=== PATIENT | female | born 1940 | race Caucasian/White ===

== ENCOUNTER 2018-12-26 19:25 | Inpatient (IN) ==
[2018-12-26] MEDS ORDERED: Ondansetron 4 MG/2 ML VIAL IVP ONE (19:38)
[2018-12-26] MEDS ORDERED: 0.9 % Sodium Chloride 1,000 ML IVC ONE ×2 (19:38→19:47)
--- NOTE | 2018-12-26 19:43 | Emergency Department Note ---
Disposition Clinical Impression: Hyponatremia, Lactic acidosis Abdominal pain Qualifiers: Abdominal location: generalized Qualified Code(s): R10.84 - Generalized abdomi nal pain Nausea and vomiting Qualifiers: Vomiting type: unspecified Vomiting Intractability: non-intractable Qualified Code(s): R11.2 - Nausea with vomiting, unspecified Diarrhea Qualifiers: Diarrhea type: unspecified type Qualified Code(s): R19.7 - Diarrhea, unspecified Hypertension Qualifiers: Hypertension type: unspecified Qualified Code(s): I10 - Essential (primary) hypertension Disposition: Still a Patient Condition: Undetermined Referrals: Deepthi Lopez CNP [Primary Care Provider] - Forms: ED Satisfaction Letter Time of Disposition: 20:49 General Adult HPI - General Chief complaint: ED Nausea/Vomiting/Diarrhea Stated complaint: Abd Pain NV Time Seen by Provider: 12/26/18 19:35 Source: patient Mode of arrival: private vehicle Limitations: no limitations Nursing Notes Reviewed: Yes Vital Signs Reviewed: Yes - History of Present Illness HPI Narrative: Patient is a 78-year-old female with past medical history including hypertension, diabetes mellitus, presenting with chief complaint of abdominal pain, nausea or vomiting, diarrhea since yesterday. The patient complains of generalized abdominal cramping since yesterday. She states since yesterday evening, she has had about 10 episodes of nonbilious nonbloody emesis. She states she had 3 episodes of nonbloody diarrhea today. She is not being able to keep down any food or water. She states she feels very dehydrated. She has also been under increased stress as of lately. She denies headaches, changes in vision, extremity weakness or numbness, chest pain, shortness of breath. The patient has had a history of a cholecystectomy many years ago. She denies any recent antibiotic use, no recent travel, no sick contacts. Pain Scale: 8 - Related Data Home Medications Medication Instructions Recorded Confirmed Lisinopril [Zestril] 20 mg PO BID 12/26/18 12/26/18 [place]-3 Fatty Acids [Fish Oil] 1,200 mg PO DAILY 12/26/18 12/26/18 Simvastatin [Zocor] 20 mg PO HS 12/26/18 12/26/18 hydrOXYzine pamoate [Hydroxyzine 12.5 mg PO PRN PRN 12/26/18 12/26/18 Pamoate] Allergies Allergy/AdvReac Type Severity Reaction Status Date / Time Penicillins Allergy Hives Verified 12/26/18 19:46 All systems ED: reviewed and negative except as stated. Review of Systems: As Per HPI Constitutional: Denies: fever, chills Eyes: Denies: vision change Cardiovascular: Denies: chest pain, palpitations Respiratory: Denies: cough, dyspnea Gastrointestinal: Reports: abdominal pain, nausea, vomiting, diarrhea. Denies: hematemesis, hematochezia Genitourinary: Denies: dysuria Neurological: Denies: headache, weakness, numbness Past Medical History - Past Medical History Attestation: Yes The following information was validated with the patient. Source: patient Medical history: Reports: diabetes, hyperlipidemia, hypertension Surgical history: Reports: cholecystectomy Psychiatric history: Reports: depression - Social History Smoking Status: Never smoker Alcohol use: Reports: none Physical Exam - General Limitations: no limitations General appearance: alert - Head Head exam: atraumatic, normocephalic - Eye Eye exam: Present: normal appearance, PERRL, EOMI. Absent: nystagmus - ENT ENT exam: mucous membranes dry - Neck Neck exam: Present: normal inspection, trachea midline - Chest Chest inspection: Present: normal inspection, symmetric chest wall rise - Respiratory Respiratory exam: Present: normal lung sounds bilaterally. Absent: respiratory distress, wheezes - Cardiovascular Cardiovascular exam: Present: regular rate, normal rhythm, other (Bilateral radial pulses are equal and palpable) - Abdominal Exam Abdominal exam: Present: soft, other (Generalized abdominal tenderness to palpation without distention, rebound or guarding). Absent: pulsatile mass - Extremities Exam Extremities exam: Present: normal capillary refill. Absent: pedal edema, calf tenderness - Neurological Exam Neurological exam: Present: alert, oriented X3, CN II-XII intact. Absent: motor sensory deficit - Expanded Neurological Exam Speech: Present: fluid speech Cerebellar function: finger to nose: Normal Motor strength - LUE: 5/5 Motor strength - RUE: 5/5 Motor strength - LLE: 5/5 Motor strength - RLE: 5/5 Upper motor neuron exam: mono neglect: Absent bilaterally, pronator drift: Absent bilaterally Sensory exam upper extremity: light touch: Normal Sensory exam lower extremity: light touch: Normal - Psychiatric Psychiatric exam: Present: normal affect, normal mood - Skin Skin exam: Present: warm, dry. Absent: pallor Course Vital Signs Temperature 97.7 F 12/26/18 19:27 Pulse Rate 90 12/26/18 19:27 Respiratory Rate 18 12/26/18 19:27 Blood Pressure 201/81 12/26/18 19:27 O2 Sat by Pulse Oximetry 97 12/26/18 19:27 Temperature 97.7 F 12/26/18 19:27 Pulse Rate 94 12/26/18 20:10 Respiratory Rate 14 12/26/18 20:10 Blood Pressure 211/83 12/26/18 20:10 O2 Sat by Pulse Oximetry 98 12/26/18 20:10 Oxygen Delivery Oxygen Delivery Room Air Medical Decision Making - MDM Narrative Medical decision making narrative: Patient appears significantly dehydrated. She has global weakness and slow movements but a non focal neurologic examination. She is generalized abdominal tenderness without peritoneal signs. Her blood pressure is significantly elevated. We will reassess after giving her antiemetics and IV fluids. Will give her IVFs. Check CBC, BMP, hepatic panel, lipase, troponin, Ekg, ct abd pelvis. 20:25 Labs reviewed. She has hyponatremia and protein in her urine. Will give hydralazine for her hypertension. Patient currently in CT scan 20:45 The patient will be signed out to Dr. Bello and Dr. Hale pending CT imaging results and troponin. She has lactic acidosis. She will be admitted for dehydration and pending CT results. - Medical Records Medical records reviewed: Yes I reviewed the patient's medical records. - Lab Data Lab results reviewed: Yes I reviewed the patient's lab results. Result diagrams: 12/26/18 19:43 12/26/18 19:43 Lab Results 12/26/18 12/26/18 12/26/18 Range/Units 19:43 19:43 19:43 WBC 17.6 H (4.3-11.1) K/mcL RBC 4.88 (3.82-4.97) M/mcL Hgb 14.1 (11.5-15.4) g/dL Hct 41.5 (35.3-44.9) % MCV 85.0 (83.0-100.0) fL MCH 28.9 (28.0-33.3) pg MCHC 34.0 (31.6-35.5) g/dL RDW 11.9 (11.5-14.5) % Plt Count 218 (140-400) K/mcL MPV 10.2 (9.4-12.4) fL Immature Gran % 0.4 (0-4) % Seg Neutrophils % 86.5 % Lymphocytes % 8.3 % Monocytes % 4.4 % Eosinophils % 0.1 % Basophils % 0.3 % Neutrophils # 15.3 H (1.6-8.9) K/mcL Lymphocytes # 1.5 (0.6-4.6) K/mcL Monocytes # 0.8 (0.0-1.3) K/mcL Eosinophils # 0.0 (0.0-0.6) K/mcL Basophils # 0.1 (0.0-0.2) K/mcL Sodium 127 L (136-145) mEq/L Potassium 3.5 (3.5-5.1) mEq/L Chloride 91 L (98-107) mEq/L Carbon Dioxide 22 L (23-29) mEq/L BUN 11 (8-23) mg/dL Creatinine 0.52 L (0.60-1.20) mg/dL Est GFR ( Amer) > 60 (> 60) Est GFR (Non-Af Amer) > 60 (> 60) BUN/Creatinine Ratio 21 (6-26) Glucose 173 H (70-105) mg/dL Calculated Osmolality 268 L (280-300) Lactic Acid 2.5 H (0.5-2.2) mmol/L Calcium 9.9 (8.6-10.3) mg/dL Total Bilirubin 0.9 (0.3-1.0) mg/dL Direct Bilirubin 0.2 (0.0-0.2) mg/dL Indirect Bilirubin 0.7 (0.0-1.2) mg/dL AST 14 (13-39) Units/L ALT 11 (7-52) Units/L Alkaline Phosphatase 62 (34-104) Units/L Serum Total Protein 8.2 (6.4-8.9) g/dL Albumin 4.7 (3.5-5.7) g/dL Globulin 3.5 (2.4-3.5) g/dL Albumin/Globulin Ratio 1.3 (1.1-2.2) Lipase 13 (11-82) Units/L Urine Color (Yellow) Urine Clarity (Clear) Urine pH (5.0-8.0) pH Units Ur Specific [place] (1.010-1.025) Urine Protein (Neg-Trace) mg/dL Urine Glucose (UA) (Normal) mg/dL Urine Ketones (Negative) mg/dL Urine Blood (Negative) Urine Nitrite (Negative) Urine Bilirubin (Negative) Urine Urobilinogen (Normal) mg/dL Ur Leukocyte Esterase (Negative) Urine Microscopic RBC (0-3) per hpf Urine Microscopic WBC (0-3) per hpf Ur Squamous Epith Cells (None-Few) per lpf Urine Bacteria (None-Few) per hpf Hyaline Casts (None-Few) per lpf Ur Culture Indicated? (NO) 12/26/18 Range/Units 20:10 WBC (4.3-11.1) K/mcL RBC (3.82-4.97) M/mcL Hgb (11.5-15.4) g/dL Hct (35.3-44.9) % MCV (83.0-100.0) fL MCH (28.0-33.3) pg MCHC (31.6-35.5) g/dL RDW (11.5-14.5) % Plt Count (140-400) K/mcL MPV (9.4-12.4) fL Immature Gran % (0-4) % Seg Neutrophils % % Lymphocytes % % Monocytes % % Eosinophils % % Basophils % % Neutrophils # (1.6-8.9) K/mcL Lymphocytes # (0.6-4.6) K/mcL Monocytes # (0.0-1.3) K/mcL Eosinophils # (0.0-0.6) K/mcL Basophils # (0.0-0.2) K/mcL Sodium (136-145) mEq/L Potassium (3.5-5.1) mEq/L Chloride (98-107) mEq/L Carbon Dioxide (23-29) mEq/L BUN (8-23) mg/dL Creatinine (0.60-1.20) mg/dL Est GFR ( Amer) (> 60) Est GFR (Non-Af Amer) (> 60) BUN/Creatinine Ratio (6-26) Glucose (70-105) mg/dL Calculated Osmolality (280-300) Lactic Acid (0.5-2.2) mmol/L Calcium (8.6-10.3) mg/dL Total Bilirubin (0.3-1.0) mg/dL Direct Bilirubin (0.0-0.2) mg/dL Indirect Bilirubin (0.0-1.2) mg/dL AST (13-39) Units/L ALT (7-52) Units/L Alkaline Phosphatase (34-104) Units/L Serum Total Protein (6.4-8.9) g/dL Albumin (3.5-5.7) g/dL Globulin (2.4-3.5) g/dL Albumin/Globulin Ratio (1.1-2.2) Lipase (11-82) Units/L Urine Color Yellow (Yellow) Urine Clarity Clear (Clear) Urine pH 7.0 (5.0-8.0) pH Units Ur Specific [place] 1.020 (1.010-1.025) Urine Protein 100 H (Neg-Trace) mg/dL Urine Glucose (UA) 100 H (Normal) mg/dL Urine Ketones 15 H (Negative) mg/dL Urine Blood Small H (Negative) Urine Nitrite Negative (Negative) Urine Bilirubin Negative (Negative) Urine Urobilinogen Normal (Normal) mg/dL Ur Leukocyte Esterase Negative (Negative) Urine Microscopic RBC 3-5 H (0-3) per hpf Urine Microscopic WBC 0-3 (0-3) per hpf Ur Squamous Epith Cells Moderate H (None-Few) per lpf Urine Bacteria None Seen (None-Few) per hpf Hyaline Casts None Seen (None-Few) per lpf Ur Culture Indicated? NO (NO) - Radiology Data Radiology results reviewed: Yes I reviewed the patient's radiology results. - EKG Data EKG #1 EKG attestation: Yes I reviewed and interpreted this EKG. EKG results narrative: EKG obtained at 1940 shows sinus rhythm with heart rate 84, TX interval 155, QRS duration 94, QTc 460, no ST elevation, minimal ST depression in lead 2, lead 3, aVF, no T-wave changes, compared to old EKG on 05/30/2018 but overall shows no acute changes. Overall impression is no acute ischemic changes.
[2018-12-26] MEDS ORDERED: Isovue-370 500 ML BOTTLE IVP ONE (19:49)
--- NOTE | 2018-12-26 19:49 | Emergency Department Note ---
Disposition Clinical Impression: Hyponatremia, Lactic acidosis Abdominal pain Qualifiers: Abdominal location: generalized Qualified Code(s): R10.84 - Generalized abdomi nal pain Nausea and vomiting Qualifiers: Vomiting type: unspecified Vomiting Intractability: non-intractable Qualified Code(s): R11.2 - Nausea with vomiting, unspecified Diarrhea Qualifiers: Diarrhea type: unspecified type Qualified Code(s): R19.7 - Diarrhea, unspecified Hypertension Qualifiers: Hypertension type: unspecified Qualified Code(s): I10 - Essential (primary) hypertension Disposition: Still a Patient Condition: Undetermined Referrals: Deepthi Lopez CNP [Primary Care Provider] - Forms: ED Satisfaction Letter Time of Disposition: 20:59 General Adult HPI - General Chief complaint: ED Nausea/Vomiting/Diarrhea Stated complaint: Abd Pain NV Time Seen by Provider: 12/26/18 19:35 Source: patient Mode of arrival: private vehicle Limitations: no limitations Nursing Notes Reviewed: Yes Vital Signs Reviewed: Yes - History of Present Illness Pain Scale: 8 - Related Data Home Medications Medication Instructions Recorded Confirmed Lisinopril [Zestril] 20 mg PO BID 12/26/18 12/26/18 [place]-3 Fatty Acids [Fish Oil] 1,200 mg PO DAILY 12/26/18 12/26/18 Simvastatin [Zocor] 20 mg PO HS 12/26/18 12/26/18 hydrOXYzine pamoate [Hydroxyzine 12.5 mg PO PRN PRN 12/26/18 12/26/18 Pamoate] Allergies Allergy/AdvReac Type Severity Reaction Status Date / Time Penicillins Allergy Hives Verified 12/26/18 19:46 Past Medical History - Past Medical History Medical history: Reports: diabetes, hyperlipidemia, hypertension Psychiatric history: Reports: depression - Social History Smoking Status: Never smoker Alcohol use: Reports: none Physical Exam - General Limitations: no limitations General appearance: alert, lethargic Course Vital Signs Temperature 97.7 F 12/26/18 19:27 Pulse Rate 90 12/26/18 19:27 Respiratory Rate 18 12/26/18 19:27 Blood Pressure 201/81 12/26/18 19:27 O2 Sat by Pulse Oximetry 97 12/26/18 19:27 Temperature 97.7 F 12/26/18 19:27 Pulse Rate 94 12/26/18 20:10 Respiratory Rate 14 12/26/18 20:10 Blood Pressure 211/83 12/26/18 20:10 O2 Sat by Pulse Oximetry 98 12/26/18 20:10 Oxygen Delivery Oxygen Delivery Room Air Medical Decision Making - MDM Narrative Medical decision making narrative: 0841 hrs. labs are coming back she is hyponatremic. She does not have renal failure, she is going to CAT scan now and there were no sign this case out to Dr. Bello the evening ER physician for further management disposition most likely admission. - Lab Data Result diagrams: 12/26/18 19:43 12/26/18 19:43 Lab Results 12/26/18 12/26/18 12/26/18 Range/Units 19:43 19:43 19:43 WBC 17.6 H (4.3-11.1) K/mcL RBC 4.88 (3.82-4.97) M/mcL Hgb 14.1 (11.5-15.4) g/dL Hct 41.5 (35.3-44.9) % MCV 85.0 (83.0-100.0) fL MCH 28.9 (28.0-33.3) pg MCHC 34.0 (31.6-35.5) g/dL RDW 11.9 (11.5-14.5) % Plt Count 218 (140-400) K/mcL MPV 10.2 (9.4-12.4) fL Immature Gran % 0.4 (0-4) % Seg Neutrophils % 86.5 % Lymphocytes % 8.3 % Monocytes % 4.4 % Eosinophils % 0.1 % Basophils % 0.3 % Neutrophils # 15.3 H (1.6-8.9) K/mcL Lymphocytes # 1.5 (0.6-4.6) K/mcL Monocytes # 0.8 (0.0-1.3) K/mcL Eosinophils # 0.0 (0.0-0.6) K/mcL Basophils # 0.1 (0.0-0.2) K/mcL Sodium 127 L (136-145) mEq/L Potassium 3.5 (3.5-5.1) mEq/L Chloride 91 L (98-107) mEq/L Carbon Dioxide 22 L (23-29) mEq/L BUN 11 (8-23) mg/dL Creatinine 0.52 L (0.60-1.20) mg/dL Est GFR ( Amer) > 60 (> 60) Est GFR (Non-Af Amer) > 60 (> 60) BUN/Creatinine Ratio 21 (6-26) Glucose 173 H (70-105) mg/dL Calculated Osmolality 268 L (280-300) Lactic Acid 2.5 H (0.5-2.2) mmol/L Calcium 9.9 (8.6-10.3) mg/dL Total Bilirubin 0.9 (0.3-1.0) mg/dL Direct Bilirubin 0.2 (0.0-0.2) mg/dL Indirect Bilirubin 0.7 (0.0-1.2) mg/dL AST 14 (13-39) Units/L ALT 11 (7-52) Units/L Alkaline Phosphatase 62 (34-104) Units/L Serum Total Protein 8.2 (6.4-8.9) g/dL Albumin 4.7 (3.5-5.7) g/dL Globulin 3.5 (2.4-3.5) g/dL Albumin/Globulin Ratio 1.3 (1.1-2.2) Lipase 13 (11-82) Units/L Urine Color (Yellow) Urine Clarity (Clear) Urine pH (5.0-8.0) pH Units Ur Specific [place] (1.010-1.025) Urine Protein (Neg-Trace) mg/dL Urine Glucose (UA) (Normal) mg/dL Urine Ketones (Negative) mg/dL Urine Blood (Negative) Urine Nitrite (Negative) Urine Bilirubin (Negative) Urine Urobilinogen (Normal) mg/dL Ur Leukocyte Esterase (Negative) Urine Microscopic RBC (0-3) per hpf Urine Microscopic WBC (0-3) per hpf Ur Squamous Epith Cells (None-Few) per lpf Urine Bacteria (None-Few) per hpf Hyaline Casts (None-Few) per lpf Ur Culture Indicated? (NO) 12/26/18 Range/Units 20:10 WBC (4.3-11.1) K/mcL RBC (3.82-4.97) M/mcL Hgb (11.5-15.4) g/dL Hct (35.3-44.9) % MCV (83.0-100.0) fL MCH (28.0-33.3) pg MCHC (31.6-35.5) g/dL RDW (11.5-14.5) % Plt Count (140-400) K/mcL MPV (9.4-12.4) fL Immature Gran % (0-4) % Seg Neutrophils % % Lymphocytes % % Monocytes % % Eosinophils % % Basophils % % Neutrophils # (1.6-8.9) K/mcL Lymphocytes # (0.6-4.6) K/mcL Monocytes # (0.0-1.3) K/mcL Eosinophils # (0.0-0.6) K/mcL Basophils # (0.0-0.2) K/mcL Sodium (136-145) mEq/L Potassium (3.5-5.1) mEq/L Chloride (98-107) mEq/L Carbon Dioxide (23-29) mEq/L BUN (8-23) mg/dL Creatinine (0.60-1.20) mg/dL Est GFR ( Amer) (> 60) Est GFR (Non-Af Amer) (> 60) BUN/Creatinine Ratio (6-26) Glucose (70-105) mg/dL Calculated Osmolality (280-300) Lactic Acid (0.5-2.2) mmol/L Calcium (8.6-10.3) mg/dL Total Bilirubin (0.3-1.0) mg/dL Direct Bilirubin (0.0-0.2) mg/dL Indirect Bilirubin (0.0-1.2) mg/dL AST (13-39) Units/L ALT (7-52) Units/L Alkaline Phosphatase (34-104) Units/L Serum Total Protein (6.4-8.9) g/dL Albumin (3.5-5.7) g/dL Globulin (2.4-3.5) g/dL Albumin/Globulin Ratio (1.1-2.2) Lipase (11-82) Units/L Urine Color Yellow (Yellow) Urine Clarity Clear (Clear) Urine pH 7.0 (5.0-8.0) pH Units Ur Specific [place] 1.020 (1.010-1.025) Urine Protein 100 H (Neg-Trace) mg/dL Urine Glucose (UA) 100 H (Normal) mg/dL Urine Ketones 15 H (Negative) mg/dL Urine Blood Small H (Negative) Urine Nitrite Negative (Negative) Urine Bilirubin Negative (Negative) Urine Urobilinogen Normal (Normal) mg/dL Ur Leukocyte Esterase Negative (Negative) Urine Microscopic RBC 3-5 H (0-3) per hpf Urine Microscopic WBC 0-3 (0-3) per hpf Ur Squamous Epith Cells Moderate H (None-Few) per lpf Urine Bacteria None Seen (None-Few) per hpf Hyaline Casts None Seen (None-Few) per lpf Ur Culture Indicated? NO (NO) Attestation Statement - Attestation Attestation: This documentation is done with the assistance of Dragon dictation. Despite efforts made to ensure accuracy, there may be inaccuracies in nuclear reactor technician or spelling and typographical errors. I examined this patient and my medical decision-making was reviewed with the Resident Physician. I agree with the documented findings, disposition and treatment plan as described except to the extent set forth below. Patient was seen and evaluated by Dr. bailey, I agree with their evaluation and management plan, I supervised care the patient's stay. Patient presents today with generalized weakness for the past 2-3 days with nausea vomiting and dehydration. She denies any pain. She has no focal weakness on exam nonsurgical abdomen. She is very slow but she is alert person place and time GCS of 14. Were going to do labs on her hydrate her and most likely she will need admission. She is in agreement with plan. I reviewed the residents documentation and agree with the residents assessment and plan of care. I have personally had face to face time with the patient. (Brief History, Brief Exam, and MDM) I personally supervised and was present for the hurtado/critical portions of the following procedures completed by the resident: EKG was interpreted by the resident under my supervision, I agree with their interpretation.
[2018-12-26 19:56] LABS: Basophils # 0.1 K/mcL (0.0-0.2); Basophils % 0.3 %; Eosinophils % 0.1 %; Hematocrit 41.5 % (35.3-44.9); Hemoglobin 14.1 g/dL (11.5-15.4); Immature Granulocytes % 0.4 % (0-4); Lymphocytes # 1.5 K/mcL (0.6-4.6); Lymphocytes % 8.3 %; Mean Corpuscular Hemoglobin 28.9 pg (28.0-33.3); Mean Platelet Volume 10.2 fL (9.4-12.4); Monocytes # 0.8 K/mcL (0.0-1.3); Monocytes % 4.4 %; Neutrophils # 15.3 K/mcL (1.6-8.9); Platelet Count 218 K/mcL (140-400); Red Blood Count 4.88 M/mcL (3.82-4.97); Red Cell Distribution Width 11.9 % (11.5-14.5); Segmented Neutrophils % 86.5 %; White Blood Count 17.6 K/mcL (4.3-11.1)
[2018-12-26 20:14] LABS: Alanine Aminotransferase 11 Units/L (7-52); Albumin 4.7 g/dL (3.5-5.7); Albumin/Globulin Ratio 1.3 (1.1-2.2); Alkaline Phosphatase 62 Units/L (34-104); Aspartate Amino Transferase 14 Units/L (13-39); BUN/Creatinine Ratio 21 (6-26); Bilirubin,Direct 0.2 mg/dL (0.0-0.2); Bilirubin,Indirect 0.7 mg/dL (0.0-1.2); Bilirubin,Total 0.9 mg/dL (0.3-1.0); Blood Urea Nitrogen 11 mg/dL (8-23); Calcium 9.9 mg/dL (8.6-10.3); Carbon Dioxide 22 mEq/L (23-29); Chloride 91 mEq/L (98-107); Globulin 3.5 g/dL (2.4-3.5); Glucose 173 mg/dL (70-105); Lipase 13 Units/L (11-82); Osmolality,Calculated 268 (280-300); Potassium 3.5 mEq/L (3.5-5.1); Sodium 127 mEq/L (136-145); Total Protein 8.2 g/dL (6.4-8.9); eGFR For African Americans > 60 (> 60); eGFR For Non-African Americans > 60 (> 60)
[2018-12-26 20:20] LABS: Bacteria,Urine None Seen per hpf (None-Few); Bilirubin,Urine Negative (Negative); Blood,Urine Small (Negative); Clarity,Urine Clear (Clear); Color,Urine Yellow (Yellow); Glucose,Urine (UA) 100 mg/dL (Normal); Hyaline Casts,Urine None Seen per lpf (None-Few); Ketones,Urine 15 mg/dL (Negative); Leukocyte Esterase,Urine Negative (Negative); Nitrite,Urine Negative (Negative); Protein,Urine 100 mg/dL (Neg-Trace); Squamous Epithelial Cell,Urine Moderate per lpf (None-Few); Urobilinogen,Urine Normal (Normal); WBC,Urine 0-3 per hpf (0-3)
[2018-12-26] MEDS ORDERED: *HR* FentaNYL (PF) 100 MCG/2 ML VIAL IVP ONE (20:47)
--- NOTE | 2018-12-26 21:05 | Emergency Department Note ---
Disposition Clinical Impression: Hyponatremia, Lactic acidosis Abdominal pain Qualifiers: Abdominal location: generalized Qualified Code(s): R10.84 - Generalized abdomi nal pain Nausea and vomiting Qualifiers: Vomiting type: unspecified Vomiting Intractability: non-intractable Qualified Code(s): R11.2 - Nausea with vomiting, unspecified Diarrhea Qualifiers: Diarrhea type: unspecified type Qualified Code(s): R19.7 - Diarrhea, unspecified Hypertension Qualifiers: Hypertension type: unspecified Qualified Code(s): I10 - Essential (primary) hypertension Disposition: Still a Patient Condition: Undetermined Referrals: Deepthi Lopez CNP [Primary Care Provider] - Forms: ED Satisfaction Letter Time of Disposition: 21:05 General Adult HPI - General Chief complaint: ED Nausea/Vomiting/Diarrhea Stated complaint: Abd Pain NV Time Seen by Provider: 12/26/18 19:35 Source: patient Mode of arrival: private vehicle Limitations: no limitations Nursing Notes Reviewed: Yes Vital Signs Reviewed: Yes - History of Present Illness HPI Narrative: ED ATTESTATION NOTE: I examined this patient and my medical decision-making was reviewed with the Resident Physician/MOTOR POOL CLERK/PA/Student. I have personally performed a face to face evaluation on this patient & I agree with the documented findings, disposition and treatment plan as described except to the extent set forth below. Patient was seen with emergency medicine resident Dr. Kavon Hale. Please see copy of his note for details of this encounter Briefly: 78-year-old female signed out by the departing the emergency medicine attending Chris Bryant, and emergency medicine resident Lolis Galindo. Patient signed out at 2100. Patient is having abdominal pain white count of 17 hyponatremic slightly. Patient getting IV fluids anti-medics analgesics. We will follow up results of the abdominal pelvic CT and admit. Disposition pending Pain Scale: 8 - Related Data Home Medications Medication Instructions Recorded Confirmed Lisinopril [Zestril] 20 mg PO BID 12/26/18 12/26/18 [place]-3 Fatty Acids [Fish Oil] 1,200 mg PO DAILY 12/26/18 12/26/18 Simvastatin [Zocor] 20 mg PO HS 12/26/18 12/26/18 hydrOXYzine pamoate [Hydroxyzine 12.5 mg PO PRN PRN 12/26/18 12/26/18 Pamoate] Allergies Allergy/AdvReac Type Severity Reaction Status Date / Time Penicillins Allergy Hives Verified 12/26/18 19:46 Constitutional: Denies: fever, chills Eyes: Denies: vision change Cardiovascular: Denies: chest pain, palpitations Respiratory: Denies: cough, dyspnea Gastrointestinal: Reports: abdominal pain, nausea, vomiting, diarrhea. Denies: hematemesis, hematochezia Genitourinary: Denies: dysuria Neurological: Denies: headache, weakness, numbness Past Medical History - Past Medical History Medical history: Reports: diabetes, hyperlipidemia, hypertension Surgical history: Reports: cholecystectomy Psychiatric history: Reports: depression - Social History Smoking Status: Never smoker Alcohol use: Reports: none Physical Exam - General Limitations: no limitations General appearance: alert Course Vital Signs Temperature 97.7 F 12/26/18 19:27 Pulse Rate 90 12/26/18 19:27 Respiratory Rate 18 12/26/18 19:27 Blood Pressure 201/81 12/26/18 19:27 O2 Sat by Pulse Oximetry 97 12/26/18 19:27 Temperature 97.7 F 12/26/18 19:27 Pulse Rate 94 12/26/18 20:10 Respiratory Rate 14 12/26/18 20:10 Blood Pressure 211/83 12/26/18 20:10 O2 Sat by Pulse Oximetry 98 12/26/18 20:10 Oxygen Delivery Oxygen Delivery Room Air Medical Decision Making - Lab Data Result diagrams: 12/26/18 19:43 12/26/18 19:43 Lab Results 12/26/18 12/26/18 12/26/18 Range/Units 19:43 19:43 19:43 WBC 17.6 H (4.3-11.1) K/mcL RBC 4.88 (3.82-4.97) M/mcL Hgb 14.1 (11.5-15.4) g/dL Hct 41.5 (35.3-44.9) % MCV 85.0 (83.0-100.0) fL MCH 28.9 (28.0-33.3) pg MCHC 34.0 (31.6-35.5) g/dL RDW 11.9 (11.5-14.5) % Plt Count 218 (140-400) K/mcL MPV 10.2 (9.4-12.4) fL Immature Gran % 0.4 (0-4) % Seg Neutrophils % 86.5 % Lymphocytes % 8.3 % Monocytes % 4.4 % Eosinophils % 0.1 % Basophils % 0.3 % Neutrophils # 15.3 H (1.6-8.9) K/mcL Lymphocytes # 1.5 (0.6-4.6) K/mcL Monocytes # 0.8 (0.0-1.3) K/mcL Eosinophils # 0.0 (0.0-0.6) K/mcL Basophils # 0.1 (0.0-0.2) K/mcL Sodium 127 L (136-145) mEq/L Potassium 3.5 (3.5-5.1) mEq/L Chloride 91 L (98-107) mEq/L Carbon Dioxide 22 L (23-29) mEq/L BUN 11 (8-23) mg/dL Creatinine 0.52 L (0.60-1.20) mg/dL Est GFR ( Amer) > 60 (> 60) Est GFR (Non-Af Amer) > 60 (> 60) BUN/Creatinine Ratio 21 (6-26) Glucose 173 H (70-105) mg/dL Calculated Osmolality 268 L (280-300) Lactic Acid 2.5 H (0.5-2.2) mmol/L Calcium 9.9 (8.6-10.3) mg/dL Total Bilirubin 0.9 (0.3-1.0) mg/dL Direct Bilirubin 0.2 (0.0-0.2) mg/dL Indirect Bilirubin 0.7 (0.0-1.2) mg/dL AST 14 (13-39) Units/L ALT 11 (7-52) Units/L Alkaline Phosphatase 62 (34-104) Units/L Troponin I (< 0.04) ng/mL Serum Total Protein 8.2 (6.4-8.9) g/dL Albumin 4.7 (3.5-5.7) g/dL Globulin 3.5 (2.4-3.5) g/dL Albumin/Globulin Ratio 1.3 (1.1-2.2) Lipase 13 (11-82) Units/L Urine Color (Yellow) Urine Clarity (Clear) Urine pH (5.0-8.0) pH Units Ur Specific [place] (1.010-1.025) Urine Protein (Neg-Trace) mg/dL Urine Glucose (UA) (Normal) mg/dL Urine Ketones (Negative) mg/dL Urine Blood (Negative) Urine Nitrite (Negative) Urine Bilirubin (Negative) Urine Urobilinogen (Normal) mg/dL Ur Leukocyte Esterase (Negative) Urine Microscopic RBC (0-3) per hpf Urine Microscopic WBC (0-3) per hpf Ur Squamous Epith Cells (None-Few) per lpf Urine Bacteria (None-Few) per hpf Hyaline Casts (None-Few) per lpf Ur Culture Indicated? (NO) 12/26/18 12/26/18 Range/Units 19:43 20:10 WBC (4.3-11.1) K/mcL RBC (3.82-4.97) M/mcL Hgb (11.5-15.4) g/dL Hct (35.3-44.9) % MCV (83.0-100.0) fL MCH (28.0-33.3) pg MCHC (31.6-35.5) g/dL RDW (11.5-14.5) % Plt Count (140-400) K/mcL MPV (9.4-12.4) fL Immature Gran % (0-4) % Seg Neutrophils % % Lymphocytes % % Monocytes % % Eosinophils % % Basophils % % Neutrophils # (1.6-8.9) K/mcL Lymphocytes # (0.6-4.6) K/mcL Monocytes # (0.0-1.3) K/mcL Eosinophils # (0.0-0.6) K/mcL Basophils # (0.0-0.2) K/mcL Sodium (136-145) mEq/L Potassium (3.5-5.1) mEq/L Chloride (98-107) mEq/L Carbon Dioxide (23-29) mEq/L BUN (8-23) mg/dL Creatinine (0.60-1.20) mg/dL Est GFR ( Amer) (> 60) Est GFR (Non-Af Amer) (> 60) BUN/Creatinine Ratio (6-26) Glucose (70-105) mg/dL Calculated Osmolality (280-300) Lactic Acid (0.5-2.2) mmol/L Calcium (8.6-10.3) mg/dL Total Bilirubin (0.3-1.0) mg/dL Direct Bilirubin (0.0-0.2) mg/dL Indirect Bilirubin (0.0-1.2) mg/dL AST (13-39) Units/L ALT (7-52) Units/L Alkaline Phosphatase (34-104) Units/L Troponin I < 0.03 (< 0.04) ng/mL Serum Total Protein (6.4-8.9) g/dL Albumin (3.5-5.7) g/dL Globulin (2.4-3.5) g/dL Albumin/Globulin Ratio (1.1-2.2) Lipase (11-82) Units/L Urine Color Yellow (Yellow) Urine Clarity Clear (Clear) Urine pH 7.0 (5.0-8.0) pH Units Ur Specific [place] 1.020 (1.010-1.025) Urine Protein 100 H (Neg-Trace) mg/dL Urine Glucose (UA) 100 H (Normal) mg/dL Urine Ketones 15 H (Negative) mg/dL Urine Blood Small H (Negative) Urine Nitrite Negative (Negative) Urine Bilirubin Negative (Negative) Urine Urobilinogen Normal (Normal) mg/dL Ur Leukocyte Esterase Negative (Negative) Urine Microscopic RBC 3-5 H (0-3) per hpf Urine Microscopic WBC 0-3 (0-3) per hpf Ur Squamous Epith Cells Moderate H (None-Few) per lpf Urine Bacteria None Seen (None-Few) per hpf Hyaline Casts None Seen (None-Few) per lpf Ur Culture Indicated? NO (NO)
[2018-12-26 21:31] LABS: Sodium, Urine 79.8 mEq/L
--- NOTE | 2018-12-26 21:42 | Emergency Department Note ---
START Narrative - START START: Patient signed out to my care from Dr. Madisyn Todd and Dr. Chris Bullock in the shift. Please documentation by these physicians for further evaluation and management. Patient was found to have possible perforated diverticula on CT scan of the abdomen and pelvis. Surgical services was called and Dr. Cárdenas evaluated patient in the ER. The patient will be signed out to the care of surgical services with hospital admission for further evaluation and management. The patient is hemodynamically stable at the time of admission.
[2018-12-26] MEDS ORDERED: Ondansetron ODT 4 MG TAB.RAPDIS SL PRN (21:55)
[2018-12-26] MEDS ORDERED: Ondansetron 4 MG/2 ML VIAL IVP PRN (21:55)
--- NOTE | 2018-12-26 22:06 | Acute Care Surgery H&P ---
Date of Encounter: 12/26/18 Time of Encounter: 22:06 Assessment and Plan (1) Acute diverticulitis Current Visit: Yes Status: Acute 78F with acute diverticulitis, prior performation, but no abscess appreciated; HDS; patient is septic; NPO IVF IV abx serial exams: if she begins to decline, I will take to the OR tonight; activity as tolerated SQH AM labs The assessment and plan as outlined above was discussed with the patient and/or family members who expressed understanding and agreement. All questions were answered. History of Present Illness Chief complaint: abdominal pain HPI: Ms. Stallworth is a 78 year old female pMH significant for HTN, HLD who presents with one day history of worsening abdominal pain. The pain is localized to the lower quadrants, non radiating, with associated nausea. No fevers, chills, chest pain, nor shortness of breath. The patient does report a recent bowel movement and flatus, reports of blood. her last colonoscopy was about 3-4 years ago and found to unremarkable and was told that was her last colonoscopy. A CT scan was obtained which demonstrated acute diverticulitis with a small fluid collection developing. no free air, but concern for possible stool within the abdomen. HR in high 90s, hypertensive, tender in the lower quadrants, but no peritonitis. Past Med Surg Social Fam HX - Past Medical History Medical history: diabetes, hyperlipidemia, hypertension Psychiatric history: depression - Past Surgical History Surgical History: cholecystectomy - Social History Smoking Status: Never smoker Alcohol use: none - Additional Family History Additional family history: non contributory Medications and Allergies Lisinopril [Zestril] 20 mg PO BID 12/26/18 [History] [place]-3 Fatty Acids [Fish Oil] 1,200 mg PO DAILY 12/26/18 [History] Simvastatin [Zocor] 20 mg PO HS 12/26/18 [History] hydrOXYzine pamoate [Hydroxyzine Pamoate] 12.5 mg PO PRN PRN 12/26/18 [History] Allergy/AdvReac Type Severity Reaction Status Date / Time Penicillins Allergy Hives Verified 12/26/18 19:46 Review of Systems All systems PM: 12 point ROS negative besides HPI findings General Surgery Exam Initial Vital Signs Temp Pulse Resp BP Pulse Ox 97.7 F 90 18 201/81 97 12/26/18 19:27 12/26/18 19:27 12/26/18 19:27 12/26/18 19:27 12/26/18 19:27 - General physical appearance no distress - Eyes PERRL, normal ocular movement - ENT normocephalic - Neck trachea midline, no lymphadectomy - Respiratory normal expansion, normal respiratory effort - Cardiovascular Cardiovascular exam: Present: RRR - Abdomen Abdomen general surgery: Present: soft, tender Abdominal Tenderness: Present: RLQ, LLQ - Integumentary Integumentary general surgery: Present: warm and dry, no abnormal pigmentation, other (flushed in the face) - Neurologic Present: CN 2-12 grossly intact - Musculoskeletal Present: normal posture - Psychiatric Psychiatric general surgery: Present: A&Ox3 Results - Labs 12/26/18 19:43 12/26/18 19:43 Abnormal lab results WBC 17.6 K/mcL (4.3-11.1) H 12/26/18 19:43 Neutrophils # 15.3 K/mcL (1.6-8.9) H 12/26/18 19:43 Sodium 127 mEq/L (136-145) L 12/26/18 19:43 Chloride 91 mEq/L (98-107) L 12/26/18 19:43 Carbon Dioxide 22 mEq/L (23-29) L 12/26/18 19:43 Creatinine 0.52 mg/dL (0.60-1.20) L 12/26/18 19:43 Glucose 173 mg/dL (70-105) H 12/26/18 19:43 Calculated Osmolality 268 (280-300) L 12/26/18 19:43 Lactic Acid 2.5 mmol/L (0.5-2.2) H 12/26/18 19:43 Urine Protein 100 mg/dL (Neg-Trace) H 12/26/18 20:10 Urine Glucose (UA) 100 mg/dL (Normal) H 12/26/18 20:10 Urine Ketones 15 mg/dL (Negative) H 12/26/18 20:10 Urine Blood Small (Negative) H 12/26/18 20:10 Urine Microscopic RBC 3-5 per hpf (0-3) H 12/26/18 20:10 Ur Squamous Epith Cells Moderate per lpf (None-Few) H 12/26/18 20:10 Urine Osmolality 196 mOsm/kg (300-1090) L 12/26/18 21:10 Diabetes panel 12/26/18 Range/Units 19:43 Sodium 127 L (136-145) mEq/L Potassium 3.5 (3.5-5.1) mEq/L Chloride 91 L (98-107) mEq/L Carbon Dioxide 22 L (23-29) mEq/L BUN 11 (8-23) mg/dL Creatinine 0.52 L (0.60-1.20) mg/dL Glucose 173 H (70-105) mg/dL Calcium 9.9 (8.6-10.3) mg/dL AST 14 (13-39) Units/L ALT 11 (7-52) Units/L Alkaline Phosphatase 62 (34-104) Units/L Albumin 4.7 (3.5-5.7) g/dL Calcium panel 12/26/18 Range/Units 19:43 Calcium 9.9 (8.6-10.3) mg/dL Albumin 4.7 (3.5-5.7) g/dL Pituitary panel 12/26/18 Range/Units 19:43 Sodium 127 L (136-145) mEq/L Potassium 3.5 (3.5-5.1) mEq/L Chloride 91 L (98-107) mEq/L Carbon Dioxide 22 L (23-29) mEq/L BUN 11 (8-23) mg/dL Creatinine 0.52 L (0.60-1.20) mg/dL Glucose 173 H (70-105) mg/dL Calcium 9.9 (8.6-10.3) mg/dL Adrenal panel 12/26/18 Range/Units 19:43 Sodium 127 L (136-145) mEq/L Potassium 3.5 (3.5-5.1) mEq/L Chloride 91 L (98-107) mEq/L Carbon Dioxide 22 L (23-29) mEq/L BUN 11 (8-23) mg/dL Creatinine 0.52 L (0.60-1.20) mg/dL Glucose 173 H (70-105) mg/dL Calcium 9.9 (8.6-10.3) mg/dL Total Bilirubin 0.9 (0.3-1.0) mg/dL AST 14 (13-39) Units/L ALT 11 (7-52) Units/L Alkaline Phosphatase 62 (34-104) Units/L Albumin 4.7 (3.5-5.7) g/dL All other labs normal. - Imaging CT scan - abdomen: report reviewed, image reviewed CT scan - pelvis: report reviewed, image reviewed
[2018-12-26] MEDS ORDERED: Dextrose Gel 15 GM/37.5 ML TUBE PO PRN ×2 (22:23)
[2018-12-26] MEDS ORDERED: D5% in Water 1,000 ML IVC PRN (22:23)
[2018-12-26] MEDS ORDERED: *HR* Dextrose 50 % in Water (Syg) 50 ML SYRINGE IVP PRN (22:23)
[2018-12-27] MEDS: MetroNIDAZOLE 500 MG/100 ML 500 MG/100 ML BAG IVPB SCH ×4 (00:18→23:18)
[2018-12-27] MEDS: D5% in Lactated Ringers 1,000 ML IVC SCH ×2 (00:19→12:00)
[2018-12-27] MEDS: Insulin LISPRO 300 UNITS/3 ML VIAL SQ SCH ×5 (00:19→23:39)
[2018-12-27 01:50] LABS: BUN/Creatinine Ratio 17 (6-26); Blood Urea Nitrogen 9 mg/dL (8-23); Carbon Dioxide 19 mEq/L (23-29); Chloride 102 mEq/L (98-107); Glucose 158 mg/dL (70-105); Magnesium 1.5 mg/dL (1.6-2.6); Osmolality,Calculated 276 (280-300); Phosphorous 3.5 mg/dL (2.7-4.5); Potassium 3.7 mEq/L (3.5-5.1); Sodium 132 mEq/L (136-145); eGFR For African Americans > 60 (> 60); eGFR For Non-African Americans > 60 (> 60)
[2018-12-27 02:35] LABS: Basophils % 0.2 %; Eosinophils % 0.2 %; Hemoglobin 13.2 g/dL (11.5-15.4); Immature Granulocytes % 0.5 % (0-4); Lymphocytes # 1.3 K/mcL (0.6-4.6); Lymphocytes % 8.8 %; Mean Corpuscular HGB Conc 34.7 g/dL (31.6-35.5); Mean Corpuscular Hemoglobin 29.4 pg (28.0-33.3); Mean Corpuscular Volume 84.6 fL (83.0-100.0); Mean Platelet Volume 10.5 fL (9.4-12.4); Monocytes # 1.2 K/mcL (0.0-1.3); Monocytes % 7.9 %; Platelet Count 185 K/mcL (140-400); Red Blood Count 4.49 M/mcL (3.82-4.97); Segmented Neutrophils % 82.4 %; White Blood Count 14.6 K/mcL (4.3-11.1)
[2018-12-27] MEDS ORDERED: HydrOXYzine 100 MG/2 ML VIAL IM PRN (09:35)
--- NOTE | 2018-12-27 09:37 | AcuteCareSurgery Progress Note ---
<Ana Lucas - Last Filed: 12/27/18 09:31> Date of Encounter: 12/27/18 Time of Encounter: 07:50 - Assessment and Plan (1) Perforation of sigmoid colon due to diverticulitis Current Visit: Yes Status: Acute WBC has improved from 17.6 to 14.6. Her abdominal pain has also improved. There is no guarding her rebound tenderness. She is circulation tender in the left lower quadrant. VSS. We will continue with close observation and conservative management. Anticipate NPO will only be for another 24 hours if she continues to improve. Continue Levo/flagyl Repeat am labs IVF JEVON hose OOB TID AMB TID May shower IS (2) HTN, goal below 130/80 Current Visit: Yes Status: Chronic PRN hydralazine resume lisinopril when able (3) Hypomagnesemia Current Visit: Yes Status: Acute Replete as indicated Subjective Patient reports: no new complaints, feels better, still having pain, pain is less, voiding w/o difficulty, flatus, no bowel movement, afebrile Objective Vital Signs - Last 8 Hours Temp Pulse Resp BP Pulse Ox 12/27/18 07:08 97.8 F 74 18 126/73 96 12/27/18 04:33 97.9 F 70 20 129/66 96 Intake and Output 12/26/18 12/27/18 12/27/18 23:59 07:59 15:59 Intake Total 1999 100 / 100 Output Total 0 / 0 Balance 1999 100 / 100 Intake: IV Fluids 1999 100 / 100 0.9 % Sodium Chloride 1,000 ML 1999 @ 3750 mls/hr IVC .Q16M ONE Rx# :[id number] Flagyl Premix 500 MG/100 ML 500 100 / 100 mg In 100 ml @ 100 mls/hr IVPB Q8HR [facility] Rx#:[id number] Oral 0 / 0 0 / 0 Output: Urine 0 / 0 Other: # Voids 1 1 # Urine Diapers 1 Weight 59.8 kg 60.6 kg Blood Glucose* 139 151 Patient Weight 12/27/18 23:59 Weight 60.6 kg - General physical appearance well nourished, no distress - Eyes normal ocular movement - ENT atraumatic, normocephalic - Neck Neck exam: trachea midline - Respiratory normal expansion, normal respiratory effort - Cardiovascular Cardiovascular exam: Present: RRR - Abdomen Abdomen: Present: bowel sounds present, soft, tender (LLQ). Absent: guarding, rebound - Integumentary no rash - Neurologic normal sensation - Musculoskeletal normal posture - Psychiatric oriented to time, oriented to person, oriented to place, speech is normal - Labs 12/27/18 02:22 12/27/18 01:20 Diabetes panel 12/26/18 12/27/18 Range/Units 19:43 01:20 Sodium 127 L 132 L (136-145) mEq/L Potassium 3.5 3.7 (3.5-5.1) mEq/L Chloride 91 L 102 (98-107) mEq/L Carbon Dioxide 22 L 19 L (23-29) mEq/L BUN 11 9 (8-23) mg/dL Creatinine 0.52 L 0.52 L (0.60-1.20) mg/dL Glucose 173 H 158 H (70-105) mg/dL Calcium 9.9 9.0 (8.6-10.3) mg/dL AST 14 (13-39) Units/L ALT 11 (7-52) Units/L Alkaline Phosphatase 62 (34-104) Units/L Albumin 4.7 (3.5-5.7) g/dL Calcium panel 12/26/18 12/27/18 Range/Units 19:43 01:20 Calcium 9.9 9.0 (8.6-10.3) mg/dL Phosphorus 3.5 (2.7-4.5) mg/dL Albumin 4.7 (3.5-5.7) g/dL Pituitary panel 12/26/18 12/27/18 Range/Units 19:43 01:20 Sodium 127 L 132 L (136-145) mEq/L Potassium 3.5 3.7 (3.5-5.1) mEq/L Chloride 91 L 102 (98-107) mEq/L Carbon Dioxide 22 L 19 L (23-29) mEq/L BUN 11 9 (8-23) mg/dL Creatinine 0.52 L 0.52 L (0.60-1.20) mg/dL Glucose 173 H 158 H (70-105) mg/dL Calcium 9.9 9.0 (8.6-10.3) mg/dL Adrenal panel 12/26/18 12/27/18 Range/Units 19:43 01:20 Sodium 127 L 132 L (136-145) mEq/L Potassium 3.5 3.7 (3.5-5.1) mEq/L Chloride 91 L 102 (98-107) mEq/L Carbon Dioxide 22 L 19 L (23-29) mEq/L BUN 11 9 (8-23) mg/dL Creatinine 0.52 L 0.52 L (0.60-1.20) mg/dL Glucose 173 H 158 H (70-105) mg/dL Calcium 9.9 9.0 (8.6-10.3) mg/dL Total Bilirubin 0.9 (0.3-1.0) mg/dL AST 14 (13-39) Units/L ALT 11 (7-52) Units/L Alkaline Phosphatase 62 (34-104) Units/L Albumin 4.7 (3.5-5.7) g/dL - VTE Documentation of Mechanical Device: Intermittent pneumatic compression device Consult Discharge Plan - Plan Referrals: Deepthi Lopez, HAND RIGGER [Primary Care Provider] - <Quang Salinas - Last Filed: 12/27/18 11:12> Date of Encounter: 12/27/18 Objective Vital Signs - Last 8 Hours Temp Pulse Resp BP Pulse Ox 12/27/18 10:55 97.8 F 72 16 135/80 96 12/27/18 07:08 97.8 F 74 18 126/73 96 12/27/18 04:33 97.9 F 70 20 129/66 96 Intake and Output 12/26/18 12/27/18 12/27/18 23:59 07:59 15:59 Intake Total 1999 100 / 200 100 / 200 Output Total 0 / 0 Balance 1999 100 / 200 100 / 200 Intake: IV Fluids 1999 100 / 200 100 / 200 0.9 % Sodium Chloride 1,000 ML 1999 @ 3750 mls/hr IVC .Q16M [facility] Rx# :[id number] Flagyl Premix 500 MG/100 ML 500 100 / 200 100 / 200 mg In 100 ml @ 100 mls/hr IVPB Q8HR [facility] Rx#:[id number] Oral 0 / 0 0 / 0 Output: Urine 0 / 0 Other: # Voids 1 1 # Urine Diapers 1 Weight 59.8 kg 60.6 kg Blood Glucose* 139 151 Patient Weight 12/27/18 23:59 Weight 60.6 kg - Labs 12/27/18 02:22 12/27/18 01:20 Diabetes panel 12/26/18 12/27/18 Range/Units 19:43 01:20 Sodium 127 L 132 L (136-145) mEq/L Potassium 3.5 3.7 (3.5-5.1) mEq/L Chloride 91 L 102 (98-107) mEq/L Carbon Dioxide 22 L 19 L (23-29) mEq/L BUN 11 9 (8-23) mg/dL Creatinine 0.52 L 0.52 L (0.60-1.20) mg/dL Glucose 173 H 158 H (70-105) mg/dL Calcium 9.9 9.0 (8.6-10.3) mg/dL AST 14 (13-39) Units/L ALT 11 (7-52) Units/L Alkaline Phosphatase 62 (34-104) Units/L Albumin 4.7 (3.5-5.7) g/dL Calcium panel 12/26/18 12/27/18 Range/Units 19:43 01:20 Calcium 9.9 9.0 (8.6-10.3) mg/dL Phosphorus 3.5 (2.7-4.5) mg/dL Albumin 4.7 (3.5-5.7) g/dL Pituitary panel 12/26/18 12/27/18 Range/Units 19:43 01:20 Sodium 127 L 132 L (136-145) mEq/L Potassium 3.5 3.7 (3.5-5.1) mEq/L Chloride 91 L 102 (98-107) mEq/L Carbon Dioxide 22 L 19 L (23-29) mEq/L BUN 11 9 (8-23) mg/dL Creatinine 0.52 L 0.52 L (0.60-1.20) mg/dL Glucose 173 H 158 H (70-105) mg/dL Calcium 9.9 9.0 (8.6-10.3) mg/dL Adrenal panel 12/26/18 12/27/18 Range/Units 19:43 01:20 Sodium 127 L 132 L (136-145) mEq/L Potassium 3.5 3.7 (3.5-5.1) mEq/L Chloride 91 L 102 (98-107) mEq/L Carbon Dioxide 22 L 19 L (23-29) mEq/L BUN 11 9 (8-23) mg/dL Creatinine 0.52 L 0.52 L (0.60-1.20) mg/dL Glucose 173 H 158 H (70-105) mg/dL Calcium 9.9 9.0 (8.6-10.3) mg/dL Total Bilirubin 0.9 (0.3-1.0) mg/dL AST 14 (13-39) Units/L ALT 11 (7-52) Units/L Alkaline Phosphatase 62 (34-104) Units/L Albumin 4.7 (3.5-5.7) g/dL - Attending Attestation I have personally performed a face to face evaluation on this patient. I have reviewed and agree with the care plan. History and Exam by me shows: The patient is seen and evaluated on morning rounds with the acute care surgery team. Her physical examination is tremendously improved on antibiotic therapy. She no longer has involuntary guarding. White blood cell count is decreased. She is responding to nonoperative therapy for perforated diverticulitis. Continue current treatment plan Quang Salinas MD FACS
[2018-12-27] MEDS: levoFLOXacin 750 MG/150 ML 750 MG/150 ML BAG IVPB SCH (09:39)
--- NOTE | 2018-12-27 15:25 | Electrocardiograph Report ---
[address] [address] Test Date: 2018-12-26 Pat Name: Eli Stallworth Department: EXAM12 Room: [facility] Gender: Senior Scientist: : 1940 Requested By: Chris Bryant Order Number: [id number] Reading MD: Huang Corona Measurements Intervals [place] Rate: 84 P: 58 [place]: 155 QRS: -12 QRSD: 94 T: 40 QT: 389 QTc: 460 Interpretive Statements Sinus rhythm Inferior St depression Electronically Signed On 12-27-2018 15:23:49 EDT by Huang Corona
[2018-12-28 05:03] LABS: Basophils % 0.4 %; Eosinophils # 0.2 K/mcL (0.0-0.6); Eosinophils % 2.2 %; Hematocrit 35.6 % (35.3-44.9); Hemoglobin 11.9 g/dL (11.5-15.4); Immature Granulocytes % 0.4 % (0-4); Lymphocytes # 1.6 K/mcL (0.6-4.6); Lymphocytes % 21.7 %; Mean Corpuscular HGB Conc 33.4 g/dL (31.6-35.5); Mean Corpuscular Hemoglobin 29.3 pg (28.0-33.3); Mean Corpuscular Volume 87.7 fL (83.0-100.0); Mean Platelet Volume 10.2 fL (9.4-12.4); Monocytes # 0.6 K/mcL (0.0-1.3); Monocytes % 7.6 %; Neutrophils # 4.9 K/mcL (1.6-8.9); Platelet Count 179 K/mcL (140-400); Red Blood Count 4.06 M/mcL (3.82-4.97); Red Cell Distribution Width 12.5 % (11.5-14.5); Segmented Neutrophils % 67.7 %
[2018-12-28 05:11] LABS: White Blood Count 7.2 K/mcL (4.3-11.1)
[2018-12-28 05:17] LABS: BUN/Creatinine Ratio 11 (6-26); Blood Urea Nitrogen 6 mg/dL (8-23); Calcium 8.7 mg/dL (8.6-10.3); Carbon Dioxide 25 mEq/L (23-29); Chloride 107 mEq/L (98-107); Glucose 169 mg/dL (70-105); Magnesium 1.9 mg/dL (1.6-2.6); Osmolality,Calculated 288 (280-300); Phosphorous 2.4 mg/dL (2.7-4.5); Potassium 3.2 mEq/L (3.5-5.1); Sodium 138 mEq/L (136-145); eGFR For African Americans > 60 (> 60); eGFR For Non-African Americans > 60 (> 60)
[2018-12-28] MEDS: Insulin LISPRO 300 UNITS/3 ML VIAL SQ SCH ×2 (05:17→12:52)
[2018-12-28 06:37] VITALS: BP 175/78
[2018-12-28] MEDS: MetroNIDAZOLE 500 MG/100 ML 500 MG/100 ML BAG IVPB SCH (07:06)
[2018-12-28] MEDS: levoFLOXacin 750 MG/150 ML 750 MG/150 ML BAG IVPB SCH (09:00)
--- NOTE | 2018-12-28 10:07 | AcuteCareSurgery Progress Note ---
Date of Encounter: 12/28/18 Time of Encounter: 10:05 - Assessment and Plan (1) Acute diverticulitis Current Visit: Yes Status: Acute Patients denies any current pain. WBC normal. I think it would be appropriate to advance her diet to full liquids. If she can tolerate that diet without any pain, then I think it would be appropriate to discharge her home with oral antibiotics and follow up with surgery as an outpatient. Subjective Patient reports: other (Patient denies any abdominal pain. No nausea or vomiti ng. States positive flatus.) Objective Vital Signs - Last 8 Hours Temp Pulse Resp BP Pulse Ox 12/28/18 06:35 98.2 F 69 16 175/78 96 12/28/18 02:48 98.3 F 74 14 151/76 95 12/28/18 02:47 98.3 F 74 14 151/76 95 Intake and Output 12/27/18 12/28/18 12/28/18 23:59 07:59 15:59 Intake Total 100 / 1450 100 / 200 100 / 200 Balance 100 / 1450 100 / 200 100 / 200 Intake: IV Fluids 100 / 1450 100 / 200 100 / 200 Flagyl Premix 500 MG/100 ML 500 100 / 300 100 / 200 100 / 200 mg In 100 ml @ 100 mls/hr IVPB Q8HR [facility] Rx#:[id number] Oral 0 / 0 Other: # Voids 1 1 Blood Glucose* 145 163 - General physical appearance well nourished, no distress - Abdomen Abdomen: Present: bowel sounds present, soft, non tender - Labs 12/28/18 04:43 12/28/18 04:43 Diabetes panel 12/28/18 Range/Units 04:43 Sodium 138 (136-145) mEq/L Potassium 3.2 L (3.5-5.1) mEq/L Chloride 107 (98-107) mEq/L Carbon Dioxide 25 (23-29) mEq/L BUN 6 L (8-23) mg/dL Creatinine 0.55 L (0.60-1.20) mg/dL Glucose 169 H (70-105) mg/dL Calcium 8.7 (8.6-10.3) mg/dL Calcium panel 12/28/18 Range/Units 04:43 Calcium 8.7 (8.6-10.3) mg/dL Phosphorus 2.4 L (2.7-4.5) mg/dL Pituitary panel 12/28/18 Range/Units 04:43 Sodium 138 (136-145) mEq/L Potassium 3.2 L (3.5-5.1) mEq/L Chloride 107 (98-107) mEq/L Carbon Dioxide 25 (23-29) mEq/L BUN 6 L (8-23) mg/dL Creatinine 0.55 L (0.60-1.20) mg/dL Glucose 169 H (70-105) mg/dL Calcium 8.7 (8.6-10.3) mg/dL Adrenal panel 12/28/18 Range/Units 04:43 Sodium 138 (136-145) mEq/L Potassium 3.2 L (3.5-5.1) mEq/L Chloride 107 (98-107) mEq/L Carbon Dioxide 25 (23-29) mEq/L BUN 6 L (8-23) mg/dL Creatinine 0.55 L (0.60-1.20) mg/dL Glucose 169 H (70-105) mg/dL Calcium 8.7 (8.6-10.3) mg/dL - VTE Documentation of Mechanical Device: Intermittent pneumatic compression device Consult Discharge Plan - Plan Referrals: Deepthi Lopez, PANEL MACHINE OPERATOR [Primary Care Provider] -
--- NOTE | 2018-12-28 15:29 | Acute Care Surgery Event Note ---
Date of Encounter: 12/28/18 Time of Encounter: 15:28 Patient originally assessed by attending surgeon. Notified by attending surgeon that the patient was okay to discharge today. Discharge plan completed per DC section. See attending note for previous assessment today.
== END 2018-12-28 16:18 | disposition home or self-care (01) | DRG 392 ==
LOC: 3NENU 19:25 → EMEROOARM 19:25 → 3NENU 22:20
PROVIDERS: ADMIT Surgery; ATTEND Surgery

== ENCOUNTER 2022-01-28 00:34 | Inpatient (IN) ==
[2022-01-28 01:41] LABS: Basophils % 0.2 %; Eosinophils % 0.6 %; Hematocrit 38.5 % (35.3-44.9); Hemoglobin 13.7 g/dL (11.5-15.4); Immature Granulocytes % 0.2 % (0-4); Lymphocytes # 0.9 K/mcL (0.6-4.6); Lymphocytes % 13.4 %; Mean Corpuscular HGB Conc 35.6 g/dL (31.6-35.5); Mean Corpuscular Hemoglobin 29.5 pg (28.0-33.3); Mean Platelet Volume 9.1 fL (9.4-12.4); Monocytes # 0.4 K/mcL (0.0-1.3); Monocytes % 5.7 %; Neutrophils # 5.1 K/mcL (1.6-8.9); Platelet Count 232 K/mcL (140-400); Red Blood Count 4.64 M/mcL (3.82-4.97); Red Cell Distribution Width 11.9 % (11.5-14.5); Segmented Neutrophils % 79.9 %; White Blood Count 6.3 K/mcL (4.3-11.1)
[2022-01-28 02:02] LABS: BUN/Creatinine Ratio 16 (6-26); Blood Urea Nitrogen 10 mg/dL (8-23); Calcium 9.7 mg/dL (8.6-10.3); Carbon Dioxide 22 mEq/L (23-29); Chloride 84 mEq/L (98-107); Glucose 150 mg/dL (70-105); Osmolality,Calculated 250 (280-300); Potassium 3.3 mEq/L (3.5-5.1); Sodium 119 mEq/L (136-145)
[2022-01-28] MEDS ORDERED: 0.9 % Sodium Chloride 1,000 ML IVC ONE (02:05)
[2022-01-28] MEDS ORDERED: Ondansetron 4 MG/2 ML VIAL IVP PRN ×2 (02:06→11:53)
[2022-01-28 03:08] LABS: Amylase 34 Units/L (29-103); Lipase 29 Units/L (11-82); Troponin I < 0.03 ng/mL (< 0.04)
[2022-01-28 03:46] LABS: Bilirubin,Urine Negative (Negative); Blood,Urine Trace (Negative); Clarity,Urine Clear (Clear); Color,Urine Colorless (Yellow); Glucose,Urine (UA) 100 mg/dL (Normal); Ketones,Urine 20 mg/dL (Negative); Leukocyte Esterase,Urine Small (Negative); Mucus,Urine Few per lpf (None-Few); Nitrite,Urine Negative (Negative); PH,Urine 6.5 pH Units (5.0-8.0); Protein,Urine 30 mg/dL (Neg-Trace); Specific Gravity,Urine 1.011 (1.010-1.025); Squamous Epithelial Cell,Urine Few per hpf (None-Few); Urobilinogen,Urine Normal (Normal)
[2022-01-28] MEDS ORDERED: Metoclopramide 10 MG/2 ML VIAL IVP ONE (03:58)
[2022-01-28] MEDS ORDERED: 0.9 % Sodium Chloride w KCl 20 MEQ/1,000 ML MLS IVC ONE (04:15)
[2022-01-28 06:06] LABS: Influenza A PCR Negative (Negative); Influenza B PCR Negative (Negative); Resp. Syncytial Virus PCR Negative (Negative); SARS-CoV-2 by PCR (In House) Negative (Negative)
[2022-01-28] MEDS ORDERED: Naloxone 0.4 MG/ML INJ IVP PRN (10:51)
[2022-01-28] MEDS ORDERED: *HR* Dextrose 50 % in Water (Syg) 50 ML SYRINGE IVP PRN (11:55)
[2022-01-28] MEDS ORDERED: D5% in Water 1,000 ML IVC PRN (11:55)
[2022-01-28] MEDS ORDERED: Dextrose Gel 15 GM/37.5 ML TUBE PO PRN ×2 (11:55)
[2022-01-28 13:46] LABS: BUN/Creatinine Ratio 12 (6-26); Blood Urea Nitrogen 7 mg/dL (8-23); Calcium 9.3 mg/dL (8.6-10.3); Carbon Dioxide 20 mEq/L (23-29); Chloride 92 mEq/L (98-107); Glucose 119 mg/dL (70-105); Magnesium 1.7 mg/dL (1.6-2.6); Osmolality,Calculated 259 (280-300); Potassium 4.1 mEq/L (3.5-5.1); Sodium 125 mEq/L (136-145)
[2022-01-28] MEDS: Insulin LISPRO 300 UNITS/3 ML VIAL SUBQ SCH ×2 (17:52→23:08)
[2022-01-28] MEDS ORDERED: Ringers Solution, Lactated 1,000 ML IVC SCH (20:15)
[2022-01-29 03:18] LABS: Basophils % 0.5 %; Eosinophils # 0.1 K/mcL (0.0-0.6); Eosinophils % 1.5 %; Hematocrit 37.4 % (35.3-44.9); Hemoglobin 13.3 g/dL (11.5-15.4); Immature Granulocytes % 0.2 % (0-4); Lymphocytes # 1.5 K/mcL (0.6-4.6); Lymphocytes % 24.6 %; Mean Corpuscular HGB Conc 35.6 g/dL (31.6-35.5); Mean Corpuscular Hemoglobin 29.5 pg (28.0-33.3); Mean Corpuscular Volume 82.9 fL (83.0-100.0); Mean Platelet Volume 9.1 fL (9.4-12.4); Monocytes # 0.5 K/mcL (0.0-1.3); Monocytes % 8.9 %; Neutrophils # 3.9 K/mcL (1.6-8.9); Platelet Count 213 K/mcL (140-400); Red Blood Count 4.51 M/mcL (3.82-4.97); Red Cell Distribution Width 12.2 % (11.5-14.5); Segmented Neutrophils % 64.3 %
[2022-01-29 03:34] LABS: Calcium 9.2 mg/dL (8.6-10.3); Potassium 3.4 mEq/L (3.5-5.1)
[2022-01-29] MEDS: *HR* Enoxaparin 40 MG/0.4 ML SYRINGE SQ SCH (06:33)
[2022-01-29 06:34] LABS: Adenovirus F 40/41 PCR Not detected (Not detect); Astrovirus PCR Not detected (Not detect); C.difficile Toxin A/B Gene PCR Not detected (Not detect); Campylobacter by PCR Not detected (Not detect); Cryptosporidium by PCR Not detected (Not detect); Cyclospora cayetanensis PCR Not detected (Not detect); E. coli O157 by PCR Not detected (Not detect); Entamoeba histolytica PCR Not detected (Not detect); Enteroaggregative E.coli(EAEC) Not detected (Not detect); Enteropathogenic E.coli(EPEC) Not detected (Not detect); Enterotoxigenic E.coli (ETEC) Not detected (Not detect); Giardia lamblia PCR Not detected (Not detect); Norovirus GI/GII PCR Not detected (Not detect); Plesiomonas shigelloides PCR Not detected (Not detect); Rotavirus A PCR Not detected (Not detect); Salmonella PCR Not detected (Not detect); Sapovirus PCR Not detected (Not detect); Shig/EnteroinvasiveE coli EIEC Not detected (Not detect); Shigalike tox-prod E coli STEC Not detected (Not detect); Vibrio PCR Not detected (Not detect); Vibrio cholerae PCR Not detected (Not detect); Yersinia enterocolitica PCR Not detected (Not detect)
[2022-01-29] MEDS: Insulin LISPRO 300 UNITS/3 ML VIAL SUBQ SCH ×3 (09:42→17:59)
[2022-01-29] MEDS ORDERED: Ondansetron 4 MG/2 ML VIAL IVP PRN (13:06)
[2022-01-29] MEDS: 0.9 % Sodium Chloride 1,000 ML IVC SCH (14:26)
[2022-01-29] MEDS: lisinopriL 20 MG TABLET PO SCH (14:30)
[2022-01-29 17:15] LABS: Calcium 9.4 mg/dL (8.6-10.3); Potassium 3.4 mEq/L (3.5-5.1)
[2022-01-29 21:06] LABS: Potassium 3.5 mEq/L (3.5-5.1)
[2022-01-30 01:44] LABS: Hematocrit 38.2 % (35.3-44.9); Mean Corpuscular Hemoglobin 28.9 pg (28.0-33.3); Mean Corpuscular Volume 84.9 fL (83.0-100.0); Mean Platelet Volume 9.5 fL (9.4-12.4); Platelet Count 240 K/mcL (140-400); Red Cell Distribution Width 12.4 % (11.5-14.5); White Blood Count 7.3 K/mcL (4.3-11.1)
[2022-01-30 02:06] LABS: Calcium 9.3 mg/dL (8.6-10.3); Potassium 4.2 mEq/L (3.5-5.1)
[2022-01-30] MEDS: Insulin LISPRO 300 UNITS/3 ML VIAL SUBQ SCH ×5 (05:39→20:49)
[2022-01-30] MEDS: 0.9 % Sodium Chloride 1,000 ML IVC SCH ×3 (06:30→14:16)
[2022-01-30] MEDS: *HR* Enoxaparin 40 MG/0.4 ML SYRINGE SQ SCH (06:31)
[2022-01-30] MEDS: lisinopriL 20 MG TABLET PO SCH (08:51)
[2022-01-30 10:15] LABS: Calcium 9.2 mg/dL (8.6-10.3); Potassium 3.7 mEq/L (3.5-5.1)
[2022-01-30] MEDS: amLODIPine 5 MG TABLET PO SCH (16:54)
[2022-01-30] MEDS ORDERED: *HR* Labetalol 20 MG/4 ML SYRINGE IVP ONE (18:20)
[2022-01-31 03:40] LABS: Hematocrit 38.2 % (35.3-44.9); Hemoglobin 13.2 g/dL (11.5-15.4); Mean Corpuscular HGB Conc 34.6 g/dL (31.6-35.5); Mean Corpuscular Hemoglobin 29.5 pg (28.0-33.3); Mean Corpuscular Volume 85.5 fL (83.0-100.0); Mean Platelet Volume 9.3 fL (9.4-12.4); Platelet Count 222 K/mcL (140-400); Red Blood Count 4.47 M/mcL (3.82-4.97); Red Cell Distribution Width 12.6 % (11.5-14.5); White Blood Count 9.1 K/mcL (4.3-11.1)
[2022-01-31 04:01] LABS: Calcium 9.4 mg/dL (8.6-10.3); Potassium 3.4 mEq/L (3.5-5.1)
[2022-01-31] MEDS: *HR* Enoxaparin 40 MG/0.4 ML SYRINGE SQ SCH (04:34)
[2022-01-31] MEDS: amLODIPine 5 MG TABLET PO SCH ×3 (08:13→13:27)
[2022-01-31] MEDS: lisinopriL 20 MG TABLET PO SCH (08:13)
[2022-01-31] MEDS: Insulin LISPRO 300 UNITS/3 ML VIAL SUBQ SCH ×4 (08:15→21:31)
[2022-02-01] MEDS: *HR* Enoxaparin 40 MG/0.4 ML SYRINGE SQ SCH (06:21)
[2022-02-01] MEDS: amLODIPine 5 MG TABLET PO SCH (07:30)
[2022-02-01] MEDS: lisinopriL 20 MG TABLET PO SCH (07:31)
[2022-02-01] MEDS: Insulin LISPRO 300 UNITS/3 ML VIAL SUBQ SCH ×4 (07:31→20:27)
[2022-02-01 11:28] LABS: Calcium 9.7 mg/dL (8.6-10.3); Potassium 3.6 mEq/L (3.5-5.1)
[2022-02-01] MEDS: 0.9 % Sodium Chloride 1,000 ML IVC SCH (20:27)
[2022-02-02 03:24] VITALS: BP 185/78; PULSE 119; TEMP 97.7; O2SAT 98
[2022-02-02] MEDS: *HR* Enoxaparin 40 MG/0.4 ML SYRINGE SQ SCH (05:19)
[2022-02-02] MEDS: Insulin LISPRO 300 UNITS/3 ML VIAL SUBQ SCH ×2 (08:07→13:03)
[2022-02-02] MEDS: amLODIPine 5 MG TABLET PO SCH (08:07)
[2022-02-02] MEDS ORDERED: lisinopriL 20 MG TABLET PO SCH (09:00)
[2022-02-02] MEDS: 0.9 % Sodium Chloride 1,000 ML IVC SCH (10:30)
== END 2022-02-02 14:11 | disposition left against medical advice (07) | DRG 392 ==
LOC: EMEROOARM 00:34 → 3ANU 00:34 → SUATTDRO 15:44 → 3ANU 17:35
PROVIDERS: ADMIT Student in an Organized Health Care Education/Training Program; ATTEND Internal Medicine